=== PATIENT | male | born 1985 | race Two or more races ===

== ENCOUNTER → 2019-07-06 | Outpatient (CLI) | payer OTHER | END | disposition home or self-care (01) | LOC: EDSEX 09:06 → LAB 09:06 | PROVIDERS: ATTEND Preventive Medicine Preventive Medicine/Occupational Environmental Medicine | DX: Z02.1 Encounter for pre-employment examination (principal) | CPT/HCPCS: 36415; 86706; 86735; 86762; 86765; 86787 ==

== ENCOUNTER → 2021-02-12 | Outpatient (CLI) | payer BC | END | disposition home or self-care (01) | LOC: LAB 09:29 | PROVIDERS: ATTEND Nurse Practitioner Family | DX: Z20.822 Contact with and (suspected) exposure to COVID-19 (principal) | CPT/HCPCS: C9803; U0003 ==